=== PATIENT | female | born 1995 | race Caucasian/White ===

== ENCOUNTER 2017-05-08 09:50 | Emergency (ER) | payer MEDICAID ==
[~2017-05-08] VITALS: Ht 162.6 cm; Wt 81.6 kg
[~2017-05-08 09:50] MED LIST: AEROCHAMBER1 DEV IH; ALBUTEROL2 PUFFS/17 IN; AMOXICILLIN875 MG PO; ATIVAN1 M1 PO; CEPHALEXIN500 MG PO; CIPRO 500MG TA500 MG PO; FLAGYL500 MG PO; MOTRIN 400MG.400 MG PO; ZANTAC 150150 MG PO
--- OUTSIDE RECORDS SUMMARY | 2017-05-08 09:55 | External Medical Summary Rpt | CCD ---
Author Author , AMADA YBARRA Address Unknown Phone [email or web address] Purpose Continuity of Care Document - through 2016
--- OUTSIDE RECORDS SUMMARY | 2017-05-08 09:55 | External Medical Summary Rpt | CCD ---
Author Author , AMADA YBARRA Address Unknown Phone [email or web address] Immunization Name Date Rout CVX Reac Dose Comm Prov Is Faci e tion ent ider Refu lity Give sed n MMR 08-2 3 999 Hist H157 No H157 4- oric 98 al Info rmat ion - Sour ce Unsp ecif ied [place] 08-2 2 999 Hist H157 No H157 o-OP 4- oric V 98 al Info rmat ion - Sour ce Unsp ecif ied DTaP 08-2 107 999 Hist H157 No H157 , UF 4- oric 98 al Info rmat ion - Sour ce Unsp ecif ied DTaP 02-2 107 999 Hist H157 No H157 , UF 6- oric 96 al Info rmat ion - Sour ce Unsp ecif ied
--- OUTSIDE RECORDS SUMMARY | 2017-05-08 09:55 | External Medical Summary Rpt | CCD ---
Author Author , AMADA YBARRA Address Unknown Phone [email or web address] Immunization Name Date Rout CVX Reac Dose [...]
--- OUTSIDE RECORDS SUMMARY | 2017-05-08 09:55 | External Medical Summary Rpt ---
Author Author AMADA Luna, [employer] Organization [employer] Address Unknown Phone Unavailable
--- OUTSIDE RECORDS SUMMARY | 2017-05-08 09:55 | External Medical Summary Rpt | CCD ---
Author Author , AMADA YBARRA Address Unknown Phone [email or web address] Purpose Continuity of Care Document - through 2016
--- OUTSIDE RECORDS SUMMARY | 2017-05-08 09:55 | External Medical Summary Rpt | CCD ---
Author Author [employer] Address Unknown Phone Unavailable Purpose Continuity of Care Document - through 2016
[2017-05-08] MEDS ORDERED: FLONASE 50 MCG16 GM (10:50)
[2017-05-08] MEDS ORDERED: ZITHROMAX Z PA250 MG PO (10:50)
[2017-05-08] MEDS ORDERED: MEDROL 4MG. DOSE4 MG PO (10:50)
--- NOTE | 2017-05-08 10:51 | Urgent Treatment Center Report ---
History of Present Issue Date/Time Seen by Provider 05/08/17 1035 Visit Reason Pt arrived:Walked Presenting Problem:DIZZY, LIGHTHEADED, BILAT EAR PAIN Location if Accident: Onset of symptoms date/time:/ or onset unknown for:MEDICAL HX UNKNOWN Have you (or family members/close friends) recently traveled outside the [place]? N If Yes, where/when: Have you had exposure to infectious disease within the past month? TB? Other? Specify: Patient state that she recently had the stomach virus and now not having any vomiting State that now she is having sore throat, bilateral ear pain and sinsus pain and pressure State that she feels like she may have some drainage in the back of her throat. State that it hurts when she swallows and feels like her throat is raw. ALLERGIES Coded Allergies: No Known Allergies (09/02/16) Home Medications Reported Medications Ranitidine Hcl (Zantac) 150 MG PO BID History Medical History General Angina: No CA: No Hypertension? No Hyperlipidemia? No CHF? No COPD? No Asthma? Yes CVA? No Seizures? No Diabetes? No GB Disease: No Nephritic Syndrome? No Asplenia? No Sickle Cell Disease? No MRSA? No TB? No Cancer? 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 Respiratory cough Physical Exam Vital Signs Vital Signs Date Time Temp Pulse Resp B/P Pulse O2 O2 Flow FiO2 Ox Delivery Rate 05/08 1013 98.4 100 18 157/101 98 General Appearance normal appearance, WD/WN, no apparent distress Ear, Nose, Throat sinus pain/drainage, nasal congestion, THroat red, irritated swollen no exudate noted, drainage noted in back of throat. Tenderness noted maxillary sinuses, bilateral ears no redness, fluid noted TM bulging clear Respiratory Status Yes: trachea midline, chest symmetrical, non tender chest. No: respiratory distress. Lung Sounds bilateral: normal breath sounds, lungs clear. Cardiovascular normal exam, regular rate/rhythm, no peripheral edema Neurologic alert, normal exam, oriented x 3 Medical Decision Making LABS/Meds/Orders Pt receiving controlled substance in ED? No Departure Departure Time of Disposition 1048 Disposition DC Home or Self Care(routine) Clinical Impression Primary Impression: Upper respiratory infection Qualifiers: URI type: unspecified URI Qualified Code: J06.9 - Acute upper respiratory infection, unspecified Condition STABLE Patient Instructions DI for Ear Pain-Adult, Sore Throat Additional Instructions * Monitor Temp. Tylenol and/or Ibuprofen as needed. ER if fever is no less than 101 despite alternating Tylenol and Ibuprofen * Encourage fluids, water, Gatorade, powerade, pedialyte if infant/toddler/or child * Warm salt water gargles for throat irritation *Warm fluids *Sore throat lozenges *Sleep elevated *humidifier or vaporizer Lots of rest Increase fluids, water, Gatorade, powerade *Flonase 2 sprays each nostril daily but may take 2-3 days to notice improvement with it *Your throat swab was sent to lab for culture. Those results area typically sent to your primary care physician. Be sure to follow up in 2-3 days if no improvement so they can review those results and treat if necessary If you dont have primary care I recommend you get one, but in the mean time you will have to return to a walk in clinic Follow up IMMEDIATELY for new or worsening of symptoms OR no noticeable improvement over the next 48-72 hours. 911 immediately for any life threatening symptoms such as chest pain or difficulty breathing Discharge Counseling Counseled pt/family regarding diagnosis, medications/RX, home care, follow up needs Prescriptions Current Visit Scripts Azithromycin (Zithromycin (Z-SERGIO) 250MG Tab) 250 MG PO DAILY #6 TAB TAKE TWO (2) TABLETS ON DAY 1, THEN ONE (1) TABLET DAY #2 THRU #5 Fluticasone Propionate (Flonase 50 Mcg Nasal [place]) 2 SPRAY NA DAILY #1 BOT Methylprednisolone (Medrol Dose Sergio) 4 MG PO UD #1 SERGIO TAKE DIRECTED ON PACKAGING at 1050
[2017-05-08 10:58] VITALS: BP 146/98
== END 2017-05-08 10:59 | disposition home or self-care (01) ==
LOC: UTC 09:50
DX: J06.9 Acute upper respiratory infection, unspecified (principal); H92.09 Otalgia, unspecified ear; F17.210 Nicotine dependence, cigarettes, uncomplicated